=== PATIENT | male | born 1965 | race Caucasian/White ===

== ENCOUNTER 2019-10-20 00:20 | Observation (INO) | payer OTHER ==
[2019-10-20] MEDS ORDERED: HYDROmorphone 0.5 MG/0.5 ML SYRINGE IVP STA (00:22)
[2019-10-20] MEDS ORDERED: SODIUM CHLORIDE 0.9% 1,000 ML IV STA (00:22)
[2019-10-20] MEDS ORDERED: ONDANSETRON 4 MG/2 ML VIAL IVP PRN (00:24)
[2019-10-20] MEDS ORDERED: NALOXONE 0.4 MG/ML 1 ML VIAL IV PRN (00:24)
[2019-10-20] MEDS ORDERED: NICOTINE 14MG/24HR PATCH TRANSDERM STA (00:25)
--- NOTE | 2019-10-20 00:36 | ED ---
Abdominal Pain HPI - General Chief Complaint: Abdominal Pain Stated Complaint: Abd Pain Time Seen by Provider: 10/20/19 00:21 Source: patient, EMS Mode of arrival: EMS Limitations: no limitations - History of Present Illness Initial Comments: Alessandro is a 53-year-old male who presents to the emergency department today as a transfer from an outside facility. Patient presented to that facility complaining of right lower quadrant abdominal pain nausea and vomiting. Workup at that facility revealed found leukocytosis with a white count of greater than [address] confirmation of a nonperforated acute appendicitis. Patient was treated with Unasyn antibiotics, IV fluids and morphine for pain and subsequently transferred to our facility for further evaluation. The patient is previously healthy has no history of cardiac disease is on no anticoagulant or antiplatelet medications he has no history of abdominal surgeries in the past and no establish relationship with any surgeon. - Related Data Allergies Allergy/AdvReac Type Severity Reaction Status Date / Time No Known Allergies Allergy Verified 10/20/19 00:23 Review of Systems ROS Statement: Those systems with pertinent positive or pertinent negative responses have been documented in the HPI. ROS Other: All systems not noted in ROS Statement are negative. Past Medical History Past Medical History: No Reported History History of Any Multi-Drug Resistant Organisms: None Reported Additional Past Surgical History / Comment(s): eye surgery Past Psychological History: No Psychological Hx Reported Smoking Status: Current every day smoker Past Alcohol Use History: Occasional Past Drug Use History: None Reported General Exam - General Exam Comments Initial Comments: Physical Exam GENERAL: Patient is well-developed and well-nourished. Patient is nontoxic and well-hydrated and is in no distress. HENT: Normocephalic, Atraumatic. EYES: PERRL, EOMI PULMONARY: Unlabored respirations. CARDIOVASCULAR: RRR Warm and well perfused extremities ABDOMEN: Non-distended SKIN: No rashes or bruising : Deferred NEUROLOGIC: Alert and oriented Normal speech Normal gait MUSCULOSKELETAL: Moving all extremities with no apparent injury PSYCHIATRIC: No SI/HI Limitations: no limitations Course Vital Signs 10/20/19 00:21 Temperature 98.1 F Pulse Rate 100 Respiratory 18 Rate Blood Pressure 141/97 O2 Sat by Pulse 96 Oximetry Medical Decision Making - Medical Decision Making Patient care was discussed with transferring physician. Previously healthy 53-year-old not on any anticoagulant or antiplatelet medication with ER workup consistent with acute appendicitis. Patient appropriately treated with antiemetics, analgesics and Unasyn for antibiotic. Upon arrival patient continues have pain in the right lower quadrant no other complaints at this time. Short was reviewed vision care was discussed with general surgeon Dr. Bailey agrees with plan for placing the patient in observation for acute appendicitis of plan for appendectomy. Disposition Clinical Impression: Acute appendicitis Disposition: ADMITTED IP TO THIS HOSP Condition: Stable Is patient prescribed a controlled substance at d/c from ED?: No Referrals: None,Stated [Primary Care Provider] - 1-2 days
[2019-10-20 00:49] LABS: Basophils # (A) 0.1 k/uL (0-0.2); Basophils % (A) 0 %; Eosinophils # (A) 0.2 k/uL (0-0.7); Eosinophils % (A) 1 %; HCT 42.6 % (39.0-53.0); HGB 14.3 gm/dL (13.0-17.5); Lymphocytes # (A) 1.4 k/uL (1.0-4.8); Lymphocytes % (A) 7 %; MCH 31.6 pg (25.0-35.0); MCHC 33.6 g/dL (31.0-37.0); Mean Platelet Volume 9.2; Monocytes # (A) 0.4 k/uL (0-1.0); Monocytes % (A) 2 %; Neutrophils # (A) 16.4 k/uL (1.3-7.7); Neutrophils % (A) 88 %; Platelet Count 170 k/uL (150-450); RBC 4.53 m/uL (4.30-5.90); RDW 14.1 % (11.5-15.5); WBC 18.5 k/uL (3.8-10.6)
[2019-10-20] MEDS: ONDANSETRON 4 MG/2 ML VIAL IVP STA ×2 (00:58→12:30)
[2019-10-20 01:01] LABS: ALT 19 U/L (4-49); AST 24 U/L (17-59); African American GFR (CKD) >90 (>60 ml/min/1.73 sqM); Albumin 4.1 g/dL (3.5-5.0); Alkaline Phosphatase 93 U/L (38-126); Anion Gap 7 mmol/L; Blood Urea Nitrogen 10 mg/dL (9-20); Calcium 9.2 mg/dL (8.4-10.2); Carbon Dioxide 25 mmol/L (22-30); Chloride 106 mmol/L (98-107); Glucose 131 mg/dL (74-99); Non-African American GFR(CKD) >90 (>60 ml/min/1.73 sqM); Potassium 4.4 mmol/L (3.5-5.1); Sodium 138 mmol/L (137-145); Total Bilirubin 0.8 mg/dL (0.2-1.3); Total Protein 7.3 g/dL (6.3-8.2)
[2019-10-20] MEDS: HYDROmorphone 0.5 MG/0.5 ML SYRINGE IVP PRN ×2 (06:00→15:57)
[2019-10-20] MEDS ORDERED: ACETAMINOPHEN TAB 325 MG TAB PO PRN (09:06)
[2019-10-20] MEDS ORDERED: HYDROcodone/APAP 5-325MG 1 EACH TAB PO PRN (09:06)
--- NOTE | 2019-10-20 09:07 | P.GSHP ---
<Unique Matthews A - Last Filed: 10/20/19 09:03> History of Present Illness H&P Date: 10/20/19 CHIEF COMPLAINT: Abdominal pain HISTORY OF PRESENT ILLNESS: 53-year-old male who was transferred to [facility] from [place] secondary to abdominal pain. Patient had a computed t omography scan performed at [facility] revealing acute appendicitis. Patient examined at bedside. Patient reports he began having right lower quadrant abdominal pain yesterday that continued to worsen in severity throughout the day. He reports nausea and a few episodes of emesis yesterday. He states his emesis has resolved this morning. He denies fever or chills. Denies diarrhea or constipation. PAST MEDICAL HISTORY: See list. PAST SURGICAL HISTORY: See list. SOCIAL HISTORY: No illicit drug use. REVIEW OF SYSTEMS: CONSTITUTIONAL: Denies fever or chills. HEENT: Denies blurred vision, vision changes, or eye pain. Denies hemoptysis CARDIOVASCULAR: Denies chest pain or pressure. RESPIRATORY: No shortness of breath. GASTROINTESTINAL: Refer to [facility] for pertinent findings HEMATOLOGIC: Denies bleeding disorders. GENITOURINARY: Denies any blood in urine. SKIN: Denies pruitis. Denies rash. PHYSICAL EXAM: VITAL SIGNS: Reviewed. GENERAL: Well-developed in no acute distress. HEENT: No sclera icterus. Extraocular movements grossly intact. Moist buccal mucosa. Head is atraumatic, normocephalic. ABDOMEN: Soft. Nondistended. Tenderness with palpation to right lower quadrant. NEUROLOGIC: Alert and oriented. Cranial nerves II through XII grossly intact. LABORATORY DATA: WBC 18.5. Hemoglobin 14.3. Platelet count 170. Sodium 138. Potassium 4.4. BUN 10. Creatinine 0.88. IMAGING: CT abdomen and pelvis completed at [facility] reveals dilated appendix with surrounding inflammatory changes consistent with acute appendicitis. No abscess visualized. ASSESSMENT: 1. Right lower quadrant abdominal pain 2. Acute appendicitis PLAN: NPO. Continue IV fluids. Continue antibiotics. Monitor WBC. Patient to undergo laparoscopic appendectomy today with Dr. Bach Nurse practitioner note has been reviewed by physician. Signing provider agrees with the documented findings, assessment, and plan of care. Past Medical History Past Medical History: No Reported History History of Any Multi-Drug Resistant Organisms: None Reported Additional Past Surgical History / Comment(s): eye surgery Past Psychological History: No Psychological Hx Reported Smoking Status: Current every day smoker Past Alcohol Use History: Occasional Past Drug Use History: None Reported Medications and Allergies Allergies Allergy/AdvReac Type Severity Reaction Status Date / Time No Known Allergies Allergy Verified 10/20/19 12:24 Surgical - Exam Vital Signs Temp Pulse Resp BP Pulse Ox 98.1 F 100 18 141/97 96 10/20/19 00:21 10/20/19 00:21 10/20/19 00:21 10/20/19 00:21 10/20/19 00:21 Results - Labs 10/20/19 00:30 10/20/19 00:30 Abnormal Lab Results - Last 24 Hours (Table) 10/20/19 10/20/19 Range/Units 00:30 00:30 WBC 18.5 H (3.8-10.6) k/uL Neutrophils # 16.4 H (1.3-7.7) k/uL Glucose 131 H (74-99) mg/dL Diabetes panel 10/20/19 Range/Units 00:30 Sodium 138 (137-145) mmol/L Potassium 4.4 (3.5-5.1) mmol/L Chloride 106 (98-107) mmol/L Carbon Dioxide 25 (22-30) mmol/L BUN 10 (9-20) mg/dL Creatinine 0.88 (0.66-1.25) mg/dL Glucose 131 H (74-99) mg/dL Calcium 9.2 (8.4-10.2) mg/dL AST 24 (17-59) U/L ALT 19 (4-49) U/L Alkaline Phosphatase 93 (38-126) U/L Total Protein 7.3 (6.3-8.2) g/dL Albumin 4.1 (3.5-5.0) g/dL Calcium panel 10/20/19 Range/Units 00:30 Calcium 9.2 (8.4-10.2) mg/dL Albumin 4.1 (3.5-5.0) g/dL Pituitary panel 10/20/19 Range/Units 00:30 Sodium 138 (137-145) mmol/L Potassium 4.4 (3.5-5.1) mmol/L Chloride 106 (98-107) mmol/L Carbon Dioxide 25 (22-30) mmol/L BUN 10 (9-20) mg/dL Creatinine 0.88 (0.66-1.25) mg/dL Glucose 131 H (74-99) mg/dL Calcium 9.2 (8.4-10.2) mg/dL Adrenal panel 10/20/19 Range/Units 00:30 Sodium 138 (137-145) mmol/L Potassium 4.4 (3.5-5.1) mmol/L Chloride 106 (98-107) mmol/L Carbon Dioxide 25 (22-30) mmol/L BUN 10 (9-20) mg/dL Creatinine 0.88 (0.66-1.25) mg/dL Glucose 131 H (74-99) mg/dL Calcium 9.2 (8.4-10.2) mg/dL Total Bilirubin 0.8 (0.2-1.3) mg/dL AST 24 (17-59) U/L ALT 19 (4-49) U/L Alkaline Phosphatase 93 (38-126) U/L Total Protein 7.3 (6.3-8.2) g/dL Albumin 4.1 (3.5-5.0) g/dL <Damian Bach - Last Filed: 10/20/19 13:11> History of Present Illness As above. Patient with admission for acute appendicitis. Does feel better after starting antibiotics last night. Options reviewed. We'll proceed with laparoscopic/possible open appendectomy at this time. Risks of bleeding, infection, abscess, leak, bladder bowel and ureteral injury, conversion to an open procedure, hernia reviewed. He understands and wishes to proceed. Surgical - Exam Vital Signs Temp Pulse Resp BP Pulse Ox 98.1 F 100 18 141/97 96 10/20/19 00:21 10/20/19 00:21 10/20/19 00:21 10/20/19 00:21 10/20/19 00:21 Results - Labs 10/20/19 00:30 10/20/19 00:30 Abnormal Lab Results - Last 24 Hours (Table) 10/20/19 10/20/19 Range/Units 00:30 00:30 WBC 18.5 H (3.8-10.6) k/uL Neutrophils # 16.4 H (1.3-7.7) k/uL Glucose 131 H (74-99) mg/dL Diabetes panel 10/20/19 Range/Units 00:30 Sodium 138 (137-145) mmol/L Potassium 4.4 (3.5-5.1) mmol/L Chloride 106 (98-107) mmol/L Carbon Dioxide 25 (22-30) mmol/L BUN 10 (9-20) mg/dL Creatinine 0.88 (0.66-1.25) mg/dL Glucose 131 H (74-99) mg/dL Calcium 9.2 (8.4-10.2) mg/dL AST 24 (17-59) U/L ALT 19 (4-49) U/L Alkaline Phosphatase 93 (38-126) U/L Total Protein 7.3 (6.3-8.2) g/dL Albumin 4.1 (3.5-5.0) g/dL Calcium panel 10/20/19 Range/Units 00:30 Calcium 9.2 (8.4-10.2) mg/dL Albumin 4.1 (3.5-5.0) g/dL Pituitary panel 10/20/19 Range/Units 00:30 Sodium 138 (137-145) mmol/L Potassium 4.4 (3.5-5.1) mmol/L Chloride 106 (98-107) mmol/L Carbon Dioxide 25 (22-30) mmol/L BUN 10 (9-20) mg/dL Creatinine 0.88 (0.66-1.25) mg/dL Glucose 131 H (74-99) mg/dL Calcium 9.2 (8.4-10.2) mg/dL Adrenal panel 10/20/19 Range/Units 00:30 Sodium 138 (137-145) mmol/L Potassium 4.4 (3.5-5.1) mmol/L Chloride 106 (98-107) mmol/L Carbon Dioxide 25 (22-30) mmol/L BUN 10 (9-20) mg/dL Creatinine 0.88 (0.66-1.25) mg/dL Glucose 131 H (74-99) mg/dL Calcium 9.2 (8.4-10.2) mg/dL Total Bilirubin 0.8 (0.2-1.3) mg/dL AST 24 (17-59) U/L ALT 19 (4-49) U/L Alkaline Phosphatase 93 (38-126) U/L Total Protein 7.3 (6.3-8.2) g/dL Albumin 4.1 (3.5-5.0) g/dL
[2019-10-20] MEDS: PIPERACILLIN-TAZOBACTAM 3.375 GM in SODIUM CHLORIDE 0.9% 100 ML IVPB SCH ×2 (09:47→17:42)
[2019-10-20] MEDS: PANTOPRAZOLE 40 MG/10 ML VIAL IVP SCH (11:50)
[2019-10-20] MEDS ORDERED: IV FLUID CONTINUATION 700 ML IV ONE (12:10)
[2019-10-20] MEDS ORDERED: DEXAMETHASONE SOD PHOSPHATE 10 MG/ML 1 ML VIAL IV ONE (12:30)
[2019-10-20] MEDS: HEPARIN SODIUM,PORCINE 5,000 UNIT/ML 1 ML VIAL SQ SCH (13:00)
[2019-10-20] MEDS ORDERED: ROCURONIUM BROMIDE 10 MG/ML 5 ML VIAL IV ONE (13:22)
[2019-10-20] MEDS ORDERED: MIDAZOLAM 2 MG/2 ML VIAL ONE (13:22)
[2019-10-20] MEDS ORDERED: GLYCOPYRROLATE 0.2 MG/ML 2 ML VIAL ONE (13:22)
[2019-10-20] MEDS ORDERED: ceFAZolin 1,000 MG VIAL ONE (13:22)
[2019-10-20] MEDS ORDERED: fentaNYL (PF) 50 MCG/ML 2 ML AMP ONE (13:22)
[2019-10-20] MEDS ORDERED: PHENYLEPHRINE-0.9% NACL SYG 1 MG/10 ML SYRINGE ONE (13:22)
[2019-10-20] MEDS ORDERED: PROPOFOL 10 MG/ML 20 ML VIAL IV ONE (13:22)
[2019-10-20] MEDS ORDERED: LIDOCAINE 1% INJ 10MG/ML (20 ML MDV) ONE (13:22)
[2019-10-20] MEDS ORDERED: NEOSTIGMINE 1 MG/ML 10 ML VIAL ONE (13:22)
[2019-10-20] MEDS ORDERED: SUCCINYLCHOLINE CHLORIDE 100 MG/5 ML SYR IV ONE (13:22)
[2019-10-20] MEDS ORDERED: BUPIVACAINE (PF) 0.25% 30 ML VIAL SQ ONE (13:47)
[2019-10-20] MEDS ORDERED: LACTATED RINGERS 1,000 ML IV ONE (13:59)
--- NOTE | 2019-10-20 14:37 | P.OP ---
Date of Procedure: 10/20/19 Procedure(s) Performed: PREOPERATIVE DIAGNOSIS: Acute appendicitis POSTOPERATIVE DIAGNOSIS: Same PROCEDURE: Laparoscopic appendectomy SURGEON: Isreal EBL: 5 mL ANESTHESIA: General COMPLICATIONS: None OPERATIVE PROCEDURE: The patient was brought and placed on the operating table in the supine position. The patient was placed under general anesthesia. The abdomen was prepped and draped in the usual sterile fashion. A small vertical infraumbilical incision was made. The fascia was retracted anteriorly with Santosh forceps. The Veress needle was advanced into the peritoneal cavity. The saline drop test was normal. Insufflation took place to 15 mmHg. A 5 mm trocar was then placed. An additional 5 mm suprapubic trocar was placed under direct visualization as well as a 12 mm left lower quadrant trocar under direct visualization. There was a small amount of purulent fluid in the right lower quadrant. The appendix was inspected. It was gangrenous without perforation. The mesoappendix was dissected. The base of the appendix was divided using a linear 45 mm intestinal stapler. The mesentery itself was guided using the LigaSure device. The area was then irrigated. No further purulence or bleeding was seen. The appendix was brought out of the peritoneal cavity through the left lower quadrant trocar site with an Endo Catch bag. The fascia at the 12 mm site was closed using a [id number] 0 Vicryl stitch. The skin at all 3 sites was closed using 4-0 Monocryl sutures. Skin glue was then applied. DISPOSITION: Stable to recovery room
[2019-10-20] MEDS ORDERED: HYDROmorphone 0.5 MG/0.5 ML SYRINGE IVP ONE (15:30)
[2019-10-20 15:37] VITALS: RESP 18
[2019-10-20] MEDS: KETOROLAC 30 MG/ML 1 ML VIAL IVP SCH ×2 (15:54→20:53)
[2019-10-20] MEDS ORDERED: PIPERACILLIN-TAZOBACTAM 3.375 GM in SODIUM CHLORIDE 0.9% 100 ML IVPB SCH (16:00)
--- NOTE | 2019-10-20 22:55 | CONS ---
CONSULTATION REASON FOR CONSULTATION: Regarding nicotine dependence and other medical issues requested by Dr. Bach. HISTORY OF PRESENT ILLNESS: This 53-year-old gentleman with a past medical history of no significant medical issues, not being followed by any primary physician in the outpatient setting, was admitted with abdominal pain for the last 2 days. Patient was evaluated by Dr. Bach for possible acute appendicitis. The patient is an evaluated initially in [facility]. Dr. Bach performed laparoscopic appendectomy. The patient is being closely monitored. No chest pain. No palpitations. No fever. PAST MEDICAL HISTORY: Of nicotine dependence. History of eye surgery. MEDICATIONS: Prior to admission: 1. Naprosyn 440 mg b.i.d. p.r.n. 2. Ipava q.6h p.r.n. ALLERGIES: None. FAMILY HISTORY: No history of heart disease or strokes in family. SOCIAL HISTORY: History of smoking. No history of alcohol intake. REVIEW OF SYSTEMS: ENT mentioned earlier. CARDIOVASCULAR: No angina or palpitations. RESPIRATIONS: No cough. No hemoptysis. GI no nausea or vomiting. no dysuria or hematuria. NERVOUS SYSTEM: No numbness or weakness. ALLERGY/IMMUNOLOGY: No asthma or hayfever. MUSCULOSKELETAL as mentioned earlier. HEMATOLOGY/ONCOLOGY: No history of anemia. ENDOCRINE: No history of diabetes or hypothyroidism. CONSTITUTIONAL: As mentioned earlier. GI mentioned earlier. PHYSICAL EXAMINATION: Alert and oriented times three. Pulse 106. Blood pressure 125/64, respiration 18, temperature 98.8, pulse ox 87 percent on 2 L. HEENT: Conjunctivae normal. Oral mucosa moist. NECK is no jugular venous distention. No carotid bruit. No lymph node enlargement. Cardiovascular systems: S1, S2 muffled. RESPIRATION: Breath sounds diminished in the bases. No rhonchi. No crackles. ABDOMEN: Soft, status post surgery. LEGS: No edema. NERVOUS SYSTEM: Higher functions as mentioned earlier. Moves all four limbs. No focal deficits. Lymphatics: No lymph nodes palpable in the neck, axillae or groin. SKIN: No ulcer, no rashes and no bleeding. JOINTS: No active deforming arthropathy. LABS: WBC 10.5, glucose 131. ASSESSMENT: 1. Acute appendicitis, status post laparoscopic appendectomy. 2. Increased WBC. 3. History of nicotine dependence. 4. Increased random blood sugar. 5. Labile hypertension. RECOMMENDATIONS AND DISCUSSION: This is a 53-year-old gentleman who presented with multiple medical issues, at this time I recommend to continue the current management and DVT prophylaxis. I would recommend repeat labs the fasting blood glucose otherwise antibiotics repeat CBC. Recommend close followup with primary physician in the outpatient setting. We will follow the patient closely. Thank you Dr. Bach for letting us participate in the care of this patient. MMNIRMALAL / DARNELLN: [id number] /
[2019-10-21] MEDS: SODIUM CHLORIDE 0.9% 1,000 ML IV SCH ×3 (01:20→06:23)
[2019-10-21] MEDS: HEPARIN SODIUM,PORCINE 5,000 UNIT/ML 1 ML VIAL SQ SCH ×2 (01:57→09:03)
[2019-10-21] MEDS: PIPERACILLIN-TAZOBACTAM 3.375 GM in SODIUM CHLORIDE 0.9% 100 ML IVPB SCH ×2 (02:09→09:03)
[2019-10-21] MEDS: KETOROLAC 30 MG/ML 1 ML VIAL IVP SCH ×2 (02:11→09:03)
[2019-10-21 07:16] LABS: Basophils # (A) 0.1 k/uL (0-0.2); Basophils % (A) 0 %; Eosinophils # (A) 0.1 k/uL (0-0.7); Eosinophils % (A) 0 %; HCT 37.5 % (39.0-53.0); HGB 12.6 gm/dL (13.0-17.5); Lymphocytes # (A) 1.5 k/uL (1.0-4.8); Lymphocytes % (A) 8 %; MCH 31.8 pg (25.0-35.0); MCHC 33.5 g/dL (31.0-37.0); MCV 95.1 fL (80.0-100.0); Mean Platelet Volume 9.6; Monocytes # (A) 0.8 k/uL (0-1.0); Monocytes % (A) 4 %; Neutrophils # (A) 15.6 k/uL (1.3-7.7); Neutrophils % (A) 86 %; Platelet Count 172 k/uL (150-450); RBC 3.95 m/uL (4.30-5.90); WBC 18.2 k/uL (3.8-10.6)
[2019-10-21 07:23] LABS: African American GFR (CKD) >90 (>60 ml/min/1.73 sqM); Anion Gap 5 mmol/L; Blood Urea Nitrogen 12 mg/dL (9-20); Calcium 8.7 mg/dL (8.4-10.2); Carbon Dioxide 24 mmol/L (22-30); Chloride 108 mmol/L (98-107); Glucose 116 mg/dL (74-99); Non-African American GFR(CKD) 80 (>60 ml/min/1.73 sqM); Potassium 4.1 mmol/L (3.5-5.1); Sodium 137 mmol/L (137-145)
[2019-10-21 07:47] VITALS: BP 117/71; PULSE 78; TEMP 98.2
[2019-10-21] MEDS: PANTOPRAZOLE 40 MG/10 ML VIAL IVP SCH (09:04)
--- NOTE | 2019-10-21 11:25 | P.DS ---
Providers Date of admission: 10/20/19 00:25 Expected date of discharge: 10/21/19 Attending physician: Damian Bach Consults: 10/20/19 09:06 Consult Physician Routine Consulting Provider: Hakeem Alonzo Consult Reason/Comments: medical management Do you want consulting provider notified?: Yes Primary care physician: Stated None Hospital Course: This is a 53-year-old male who underwent laparoscopic appendectomy yesterday. Patient did well postoperative. Please see chart for details. Patient Condition at Discharge: Stable Plan - Discharge Summary Discharge Rx Participant: No New Discharge Prescriptions: New Hydrocodone/Acetaminophen [Ce[place]co 5-325] 1 tab PO Q6HR PRN #10 tab PRN Reason: Pain No Action Naproxen Sodium [Aleve] 440 mg PO BID PRN PRN Reason: Pain Discharge Medication List Hydrocodone/Acetaminophen [[place] 5-325] 1 tab PO Q6HR PRN #10 tab 10/20/19 [Rx] Naproxen Sodium [Aleve] 440 mg PO BID PRN 10/20/19 [History] Follow up Appointment(s)/Referral(s): Damian Bahc MD [Medical Doctor] - 1 Week None,Stated [Primary Care Provider] - 1-2 days Activity/Diet/Wound Care/Special Instructions: No driving while taking [place] No lifting over 10 pounds You may shower. No soaking or tub baths Very light activity until you are reevaluated at your follow up appointment with your surgeon
== END 2019-10-21 12:21 | disposition home or self-care (01) ==
LOC: EC 00:20 → 4SSUR 00:25 → 1SOBS 01:42
PROVIDERS: ADMIT Surgery; ATTEND Surgery
DX: K35.80 Unspecified acute appendicitis (principal); F17.210 Nicotine dependence, cigarettes, uncomplicated; R09.89 Other specified symptoms and signs involving the circulatory and respiratory systems; R73.9 Hyperglycemia, unspecified; Z98.49 Cataract extraction status, unspecified eye
CPT/HCPCS: 44970; 96376; 96374; 99285; 36415; 86900; 86901; 88304; 80053; 80048; 85025 ×2; 86850; G0378 ×3; J2543 ×2; J2250; J1644 ×2; J1100; J2710; J2405; J0690; J2001; J3010; J1885 ×2; J2370; J0330; J2704; C9113 ×2; J1170